=== PATIENT | female | born 1995 | race Caucasian/White ===

== ENCOUNTER 2020-11-20 20:26 | Emergency (ER) | payer SELFPAY ==
[2020-11-20] MEDS ORDERED: LODINE CAP 300300 MG PO (21:47)
== END 2020-11-20 21:50 | disposition home or self-care (01) ==
LOC: ER1 20:26
DX: S70.01XA Contusion of right hip, initial encounter (principal); S80.01XA Contusion of right knee, initial encounter; S80.11XA Contusion of right lower leg, initial encounter; X58.XXXA Exposure to other specified factors, initial encounter; Z90.49 Acquired absence of other specified parts of digestive tract
CPT/HCPCS: 73502; 73564; 73590; 99283